=== PATIENT | female | born 1985 | race Caucasian/White ===

== ENCOUNTER 2017-12-10 08:54 | Day surgery (SDC) | payer MEDICAID ==
[2017-12-10 10:52] LABS: ADD MAN DIFF? NO
[2017-12-10 10:54] LABS: BASOPHILS % 0.4 % (0.0-2.0); EOSINOPHILS # 0.1 10^3/ul (0.0-0.5); EOSINOPHILS % 0.8 % (0.0-7.0); HEMATOCRIT 40.1 % (37.0-47.0); HEMOGLOBIN 13.3 g/dl (12.0-16.0); LYMPHOCYTES # 2.2 10^3/ul (0.8-2.9); LYMPHOCYTES % 30.5 % (15.0-51.0); MEAN CORPUSCULAR HEMOGLOBIN 27.7 pg (29.0-33.0); MEAN CORPUSCULAR HGB CONC 33.2 g/dl (32.0-37.0); MEAN CORPUSCULAR VOLUME 83.4 fl (82.0-101.0); MEAN PLATELET VOLUME 10.1 fl (7.4-10.4); MONOCYTE # 0.5 10^3/ul (0.3-0.9); MONOCYTES % 6.7 % (0.0-11.0); NEUTROPHIL # 4.4 10^3/ul (1.6-7.5); PLATELET COUNT 272 10^3/UL (140-415); RED BLOOD COUNT 4.81 10^6/ul (4.20-5.40); RED CELL DISTRIBUTION WIDTH 12.9 % (11.5-14.5)
[2017-12-10 10:54] LABS: WHITE BLOOD COUNT 7.3 10^3/ul (4.8-10.8)
[2017-12-10] MEDS ORDERED: METOCLOPRAMIDE 10 MG INJ (12:37)
[2017-12-10] MEDS ORDERED: ROPIVACAINE 0.5 % 30 ML VIAL (12:38)
[2017-12-10] MEDS ORDERED: ROCURONIUM 50 MG INJ (12:40)
[2017-12-10] MEDS ORDERED: MIDAZOLAM 1 MG/ML 2 ML INJ (12:40)
[2017-12-10] MEDS ORDERED: ONDANSETRON 4 MG INJ (12:40)
[2017-12-10] MEDS ORDERED: PROPOFOL 20 ML ×3 (12:40→16:53)
[2017-12-10] MEDS ORDERED: CEFAZOLIN 1 GM INJ (13:04)
[2017-12-10] MEDS ORDERED: HYDROmorphONE 2 MG/ML SYG (13:22)
[2017-12-10] MEDS ORDERED: KETOROLAC 30 MG INJ ×2 (13:58→14:45)
[2017-12-10] MEDS ORDERED: GLYCOPYRROLATE 0.4 MG INJ (13:59)
[2017-12-10] MEDS ORDERED: NEOSTIGMINE 3 MG/3 ML SYRINGE (13:59)
[2017-12-10] MEDS ORDERED: HYDROmorphONE (0.2 MG/ML) 10ML SYG IV (14:24)
[2017-12-10] MEDS ORDERED: HYDROCODONE/APAP (5/325) TAB PO (14:30)
[2017-12-10] MEDS ORDERED: ONDANSETRON 4 MG INJ IV (14:30)
[2017-12-10] MEDS ORDERED: morphine 2 MG INJ IV (14:30)
[2017-12-10] MEDS: HYDROmorphONE (0.2 MG/ML) 10ML SYG IV (14:49)
[2017-12-10] MEDS: KETOROLAC 30 MG INJ IV (14:50)
== END 2017-12-10 16:55 | disposition home or self-care (01) ==
LOC: SDS 08:54
DX: Z30.2 Encounter for sterilization (principal)
CPT/HCPCS: 58600; 84703; 85025; 86850; 86900; 86901; 88302